=== PATIENT | male | born 1955 | race Caucasian/White ===

== ENCOUNTER 2018-10-14 07:03 | Day surgery (SDC) | payer OTHER ==
[2018-10-14 07:36] VITALS: TEMP 97.9; BMI 33.3
[2018-10-14 09:31] VITALS: BP 121/65; PULSE 52
== END 2018-10-14 09:50 | disposition home or self-care (01) ==
LOC: JASU-ENDO 07:03
PROVIDERS: ATTEND Internal Medicine Gastroenterology
PROC: 0DJD8ZZ Inspection of Lower Intestinal Tract, Via Natural or Artificial Opening Endoscopic (ICD-10-PCS; principal; 2018-10-14 08:00)
DX: Z12.11 Encounter for screening for malignant neoplasm of colon (principal); K64.8 Other hemorrhoids

== ENCOUNTER 2019-04-19 17:28 | Emergency (ER) | payer OTHER, BC | END 2019-04-19 21:48 | disposition home or self-care (01) | LOC: JER 17:28 ==

== ENCOUNTER → 2021-08-22 | Day surgery (SDC) | payer OTHER, BC | END | disposition home or self-care (01) | LOC: JRADIR 09:38 | PROVIDERS: ATTEND Internal Medicine Endocrinology, Diabetes & Metabolism | PROC: 0G9H3ZX Drainage of Right Thyroid Gland Lobe, Percutaneous Approach, Diagnostic (ICD-10-PCS; principal; 2021-08-22) | DX: E04.1 Nontoxic single thyroid nodule (principal) | CPT/HCPCS: 10005; 76942; 88173; 88305-TC ==

== ENCOUNTER 2024-05-13 04:17 | Day surgery (SDC) | payer OTHER, BC ==
[2024-05-09 10:03] VITALS: BMI 33.7
[2024-05-13 06:28] VITALS: PULSE 60
[2024-05-13] MEDS ORDERED: DEXAMETHASONE SOD PHOSPHATE 4 MG/1 ML VIAL ONE (07:05)
[2024-05-13] MEDS ORDERED: ePHEDrine SULFATE 50 MG/1 ML AMPULE ONE (07:05)
[2024-05-13] MEDS ORDERED: ONDANSETRON 4 MG/2 ML VIAL ONE (07:05)
[2024-05-13] MEDS ORDERED: LIDOCAINE HCL/PF 2% SDV 5ML VIAL ONE (07:05)
[2024-05-13] MEDS ORDERED: MIDAZOLAM HCL 2 MG/2 ML SINGLE DOSE VIAL ONE (07:06)
[2024-05-13] MEDS ORDERED: PROPOFOL 80 ML ONE (07:06)
[2024-05-13] MEDS ORDERED: SUCCINYLCHOLINE CHLORIDE 200 MG/10 ML SYRINGE ONE (07:11)
[2024-05-13] MEDS ORDERED: ROCURONIUM BROMIDE 50 MG/5 ML SYRINGE ONE (07:11)
[2024-05-13] MEDS ORDERED: oxyCODONE HCL 5 MG TABLET PO PRN ×2 (07:32→08:20)
[2024-05-13] MEDS ORDERED: ONDANSETRON 4 MG/2 ML VIAL IVPUSH PRN (07:32)
[2024-05-13] MEDS ORDERED: LACTATED RINGERS SOLUTION 1,000 ML IV SCH (07:45)
[2024-05-13] MEDS: ceFAZolin SODIUM 1 GM VIAL IVPB ONE (07:49)
[2024-05-13] MEDS: IOHEXOL 300 MG/ML INFUS..BTL IV ONE (07:59)
[2024-05-13] MEDS ORDERED: DEXTROSE 5%-0.45% SALINE 1,000 ML IV SCH (08:30)
[2024-05-13 09:33] VITALS: RESP 20
[2024-05-13] MEDS: ACETAMINOPHEN 325 MG TABLET (FP) ONE (10:30)
[2024-05-13 12:06] VITALS: BP 140/77; TEMP 97.2
== END 2024-05-13 11:00 | disposition home or self-care (01) ==
LOC: JASU-SURG 04:17
PROVIDERS: ATTEND Urology
PROC: 0TC78ZZ Extirpation of Matter from Left Ureter, Via Natural or Artificial Opening Endoscopic (ICD-10-PCS; principal; 2024-05-13 07:30)
PROC: 0T778DZ Dilation of Left Ureter with Intraluminal Device, Via Natural or Artificial Opening Endoscopic (ICD-10-PCS; 2024-05-13 07:30)
DX: N20.1 Calculus of ureter (principal)
CPT/HCPCS: 36415; 76000-TC-FY; 82360; 88300-TC; 94760; C1758

== ENCOUNTER 2024-06-16 11:14 | Emergency (ER) | payer OTHER, BC ==
[2024-06-16 11:42] VITALS: PULSE 60; BMI 33.5
[2024-06-16] MEDS ORDERED: ONDANSETRON 4 MG/2 ML VIAL ONE (12:30)
[2024-06-16] MEDS ORDERED: ACETAMINOPHEN INJECTION 100 ML IVPB ONE (12:30)
[2024-06-16] MEDS: SODIUM CHLORIDE 0.9% 500 ML INFUS.BAG IV ONE (12:45)
[2024-06-16] MEDS: ACETAMINOPHEN 1000 MG/100 ML BAG IVPB ONE (12:50)
[2024-06-16] MEDS: ONDANSETRON 4 MG/2 ML VIAL IVPUSH ONE (13:03)
[2024-06-16 13:17] LABS: EPITHELIAL CELLS 0-5 /hpf
[2024-06-16 13:22] LABS: HEMATOCRIT 40.8 % (35.4-49); HEMOGLOBIN 13.4 G/dL (11.7-16.9); MCH 28.4 pg (25.7-33.7); MCHC 32.8 g/dl (32.0-35.9); MEAN CELL VOLUME 86.9 fl (80-96); MEAN PLT VOLUME 8.5 fl (7.5-11.1); PLATELET COUNT 127.2 10^3/uL (134-434); WHITE BLOOD COUNT 9.5 10^3/uL (4.0-10.8)
[2024-06-16 13:51] LABS: ALBUMIN 3.8 g/dl (3.4-5.0); ALK PHOS 85 U/L (45-117); ANION GAP 7 mmol/L (4-13); BILIRUBIN,TOTAL 1.1 mg/dl (0.2-1); CALCIUM 9.1 mg/dl (8.5-10.1); CHLORIDE 102 mmol/L (98-107); CO2 27 mmol/L (21-32); CREATININE 1.1 mg/dl (0.6-1.3); GLUCOSE,RANDOM 141 mg/dl (74-106); POTASSIUM 3.9 mmol/L (3.5-5.1); SGOT/AST 18 U/L (15-37); SGPT/ALT 13 U/L (7-52); SODIUM 136 mmol/L (136-145); TOT PROT 6.4 g/dl (6.4-8.2)
[2024-06-16] MEDS ORDERED: cefTRIAXone SODIUM 1 GM VIAL ONE (14:08)
[2024-06-16] MEDS ORDERED: TAMSULOSIN HCL 0.4 MG CAP ONE (14:08)
[2024-06-16] MEDS: TAMSULOSIN HCL 0.4 MG CAP PO ONE (14:15)
[2024-06-16] MEDS: CEFTRIAXONE 1 GM in DEXTROSE 5%-WATER - 100 ML IVPB ONE (14:15)
[2024-06-16 14:26] VITALS: BP 154/73; RESP 15; TEMP 97.5
[2024-06-16 14:51] LABS: PLATELET ESTIMATE ADEQUATE
== END 2024-06-16 15:34 | disposition home or self-care (01) ==
LOC: FER 11:14
PROC: 3E03329 Introduction of Other Anti-infective into Peripheral Vein, Percutaneous Approach (ICD-10-PCS; principal; 2024-06-16)
PROC: 3E033NZ Introduction of Analgesics, Hypnotics, Sedatives into Peripheral Vein, Percutaneous Approach (ICD-10-PCS; 2024-06-16)
PROC: 3E033GC Introduction of Other Therapeutic Substance into Peripheral Vein, Percutaneous Approach (ICD-10-PCS; 2024-06-16)
DX: N13.2 Hydronephrosis with renal and ureteral calculous obstruction (principal); N39.0 Urinary tract infection, site not specified; R10.11 Right upper quadrant pain; R10.31 Right lower quadrant pain; R11.0 Nausea; R30.0 Dysuria; R31.9 Hematuria, unspecified
CPT/HCPCS: 36415; 74176-TC; 76705-TC; 80053; 81003; 81015; 83605; 83735; 85027; 87086; 87186; 99284-25; J0131